=== PATIENT | female | born 1980 | race Hispanic/Latino ===

== ENCOUNTER 2019-05-19 07:24 | Outpatient (CLI) | payer OTHER, SELFPAY ==
--- NOTE | ~2019-05-19 | MM_ITS ---
EXAMINATION: MM screening cornel BI w sabrina HISTORY: Screening mammogram TECHNIQUE: Craniocaudal and mediolateral oblique 3-D tomosynthesis images were obtained and synthetic 2-D images were generated. CAD analysis was submitted and interpreted. COMPARISON: 12/30/2010 BREAST PARENCHYMAL COMPOSITION: There are scattered areas of fibroglandular density. FINDINGS: RIGHT BREAST: An asymmetry is present in the subareolar aspect of the breast which is best appreciate d on the craniocaudal view.. LEFT BREAST: There is no evidence of suspicious mass, calcification, or architectural distortion to s uggest malignancy. IMPRESSION: 1. Right breast asymmetry on the craniocaudal view. 2. Additional mammographic views and possible breast ultrasound are recommended to evaluate for malig barrera and establish a baseline given that this is the first mammographic examination. BI-RADS Category 0: Incomplete: Needs additional imaging evaluation. Reviewed, dictated and finalized at location A. COMMODORE IMPRESSION: 1. Right breast asymmetry on the craniocaudal view. 2. Additional mammographic views and possible breast ultrasound are recommended to evaluate for malignancy and establish a baseline given that this is the fir st mammographic examination. BI-RADS Category 0: Incomplete: Needs additional imaging evaluation.
== END 2019-05-19 07:25 | disposition home or self-care (01) ==
PROVIDERS: PCP Family Medicine; Visit Provider Obstetrics & Gynecology
DX: Z12.31 Encounter for screening mammogram for malignant neoplasm of breast (principal)
CPT/HCPCS: 77063; 77067

== ENCOUNTER 2019-06-16 11:40 | Outpatient (CLI) | payer OTHER, SELFPAY ==
--- NOTE | ~2019-06-16 | MMUS_ITS ---
EXAMINATION: MM diagnostic mammo unilat RT, US breast RT limited HISTORY: Follow-up right breast asymmetry TECHNIQUE: Additional 3-D tomosynthesis images of the right breast were performed and synthetic 2-D i mages were generated. CAD analysis was submitted and interpreted. High resolution right breast ultras ound was performed. COMPARISON: 05/19/2019 FINDINGS: MAMMOGRAPHIC FINDINGS: Breast composed of scattered areas of fibroglandular density. There is a focal 8mm mass in the latera l aspect of the right breast on CC view with central lucency, likely benign. No suspicious calcificat ions or architectural distortion. ULTRASOUND: Right breast ultrasound: At 10:00, 2 cm from the nipple there is a 7 mm intramammary lymph node corresponding to the mass seen on mammogram. At 10:00 near the nipple is a complicated cyst measuring 4 mm. There is an adjacent 2 mm cyst. There is a small 3 mm intramammary lymph node at 9:00. There is a cyst measuring 4 mm at 6:0 0 near the nipple. There are mildly prominent ducts at 3 and 11:00. IMPRESSION: 1. No evidence for malignancy in the right breast. Benign findings. 2. Routine yearly screening mammogram and regular clinical breast examination are recommended. BI-RADS Category 2: Benign finding(s). Reviewed, dictated and finalized at location A. IMPRESSION: 1. No evidence for malignancy in the right breast. Benign findings. 2. Routine yearly screening mammogram and regular clinical breast examination a re recommended. BI-RADS Category 2: Benign finding(s).
== END 2019-06-16 11:41 | disposition home or self-care (01) ==
LOC: ANHIMG 11:42
PROVIDERS: PCP Family Medicine; Visit Provider Obstetrics & Gynecology
DX: R92.8 Other abnormal and inconclusive findings on diagnostic imaging of breast (principal)
CPT/HCPCS: 76642; 77065

== ENCOUNTER 2020-05-04 08:33 | Emergency (ER) | payer OTHER, SELFPAY ==
[2020-05-04] VITALS (7 sets, daily range): BP systolic 137–166; BP diastolic 73–101; PULSE 74–101; RESP 18; TEMP 36.2; O2SAT 99–100
--- NOTE | ~2020-05-04 | US_ITS ---
EXAMINATION: US OB <=14 wk fetus w TV DATE: 05/04/2020 11:50 INDICATION: Spotting. First trimester. TECHNIQUE: Real-time transabdominal and transvaginal pelvic ultrasound was performed. COMPARISON: None. FINDINGS: TRANSABDOMINAL ULTRASOUND: The uterus measures 9.4 x 5.0 x 4.6 cm. TRANSVAGINAL ULTRASOUND: There is an intrauterine gestational sac. A yolk sac is identified. The fet al crown rump length measures 5 mm, which correlates with an estimated gestational age of 6 weeks and 2 day(s) (+/-) 4 day(s). heart motion is identified measuring 106 beats per minute (bpm) by M- mode Doppler. The right ovary measures 2.5 x 2.3 x 1.8 cm. The left ovary measures 2.1 x 2.4 x 1.8 cm . There is no free fluid in the pelvis. IMPRESSION: 1. Single living intrauterine gestation with estimated date of delivery of 12/26/2020. Reviewed, dictated and finalized at location A. CLE PAINTER IMPRESSION: 1. Single living intrauterine gestation with estimated date of delivery of 11/29.
--- NOTE | 2020-05-04 08:51 | ED.FEMALEGU ---
HPI - Female Genitourinary General Chief complaint: Vaginal Bleeding Stated complaint: , bleeding Time Seen by Provider: 05/04/20 08:34 History of Present Illness HPI Narrative: 39 yo female at approximately 8 weeks presents to the ED for vaginal bleeding. She has noted blood on the tissue when she wipes since yesterday. No heavy bleeding and no clots. No dysuria, frequency, abdominal pain. She has not seen her OB or had an ultrasound this . Related Data Home Medications Medication Instructions Recorded Confirmed No Home Medications 05/04/20 05/04/20 Allergies Allergy/AdvReac Type Severity Reaction Status Date / Time No Known Allergies Allergy Verified 05/04/20 09:13 Review of Systems Review of Systems: All systems reviewed & are unremarkable except as noted in HPI and below Constitutional: Constitutional: Denies chills Eyes: Eyes: Reports no additional eye complaints ENT: Reports system reviewed and no additional complaints, except as documented Cardiovascular: Cardiovascular: Denies chest pain Respiratory: Respiratory: Denies dyspnea Gastrointestinal: Gastrointestinal: Denies abdominal pain, Denies nausea and Denies vomiting Genitourinary: Genitourinary: Denies nocturia and Denies dysuria Musculoskeletal: Musculoskeletal: Reports back pain Neurologic: Denies dizziness and Denies weakness [facility] Past Medical History Medical History FH: colon cancer FH: ovarian cancer Migraine Family History Family History Other Carcinoma of colon Diabetes mellitus Hypertension Social History Social History Smoking status: Never smoker Second hand tobacco smoke exposure: No Alcohol intake: never Substance use: never Exam Const: General: healthy appearing, no acute distress and alert Orientation/consciousness: patient oriented x3 HENMT: Head: normal to inspection Neck: Neck: normal visual inspection Chest: Chest palpation & inspection: no tenderness Resp: Effort & Inspection: normal respiratory effort Auscultation: clear to auscultation bilaterally, no rales, no rhonchi and no wheezes Cardio: Jugular venous distension: no JVD Rate: regular rate Rhythm: regular rhythm Heart sounds: no murmurs GI: Inspection: non-distended GI Palp: Yes Soft to palpation and No Tenderness to palpation present (GI) Skin: General skin exam: normal color Neuro: General: patient oriented x3 and moves all extremities Speech: normal speech Gait exam (Neuro): Normal gait present Extrem: General: normal to inspection and no edema Psych: Appearance: well kempt Affect: normal affect Course Vital Signs Vital signs: Vital Signs Temperature 36.2 C L 05/04/20 08:59 Pulse Rate 101 H 05/04/20 08:59 Respiratory Rate 18 05/04/20 08:59 Blood Pressure 166/101 H 05/04/20 08:59 Pulse Oximetry 100 05/04/20 08:59 Temperature 36.2 C L 05/04/20 08:59 Pulse Rate 76 05/04/20 12:01 Respiratory Rate 18 05/04/20 10:40 Blood Pressure 137/83 05/04/20 12:01 Pulse Oximetry 100 05/04/20 12:15 MDM - Female Genitourinary MDM Narrative Medical decision making narrative: No US. Her OB was contacted. They will see her in clinic within the week. Original UA was contaminated. Cathed UA reassuring Differential Diagnosis Differential diagnosis: Likely urinary tract infection and other (Subchorionic hemorrhage, miscarriage, ectopic ) Medical Records Attestation: I reviewed the patient's medical records. Lab Data Attestation: I reviewed the patient's lab results. Result diagrams: 05/04/20 09:25 Labs: Lab Results 05/04/20 05/04/20 05/04/20 Range/Units 09:25 09:25 09:25 WBC 7.1 (4.5-10.0) K/mm3 RBC 4.26 (4.2-5.4) M/mm3 Hgb 12.5 (12.0-15.0) g/dL Hct
[2020-05-04 09:38] LABS: Basophils Percent Auto 0.6 % (0.2-1.2); Eosinophils Absolute Auto 0.2 K/mm3 (0-0.3); Eosinophils Percent Auto 3.4 % (0-4.4); Hemoglobin 12.5 g/dL (12.0-15.0); Immature Granulocyte Absolute 0.03 K/mm3 (0.00-0.031); Immature Granulocyte Percent A 0.4 % (0-0.5); Lymphocytes Absolute Auto 2.19 K/mm3 (0.9-3.2); Lymphocytes Percent Auto 30.9 % (18.3-44.2); Mean Corpuscular HGB Conc 32.9 g/dl (32-36); Mean Corpuscular Hemoglobin 29.3 pg (26-34); Mean Corpuscular Volume 89.2 fl (80-100); Mean Platelet Volume 10.1 fl (7.4-10.4); Monocytes Absolute Auto 0.6 K/mm3 (0.1-0.6); Neutrophils Absolute Auto 3.9 K/mm3 (1.3-6.7); Neutrophils Percent Auto 55.7 % (45.5-73.1); Platelet Count Result 241 k/mm3 (150-375); Red Blood Count 4.26 M/mm3 (4.2-5.4); Red Cell Distribution Width 12.8 % (11.5-14.5); White Blood Count 7.1 K/mm3 (4.5-10.0)
[2020-05-04 09:46] LABS: Add Urine Microscopic? YES; Appearance Urine Cloudy (Clear); Bacteria Urine Trace /hpf; Bilirubin Urine Negative (Negative); Blood Urine 3+ (Negative); Glucose Urine UA Negative (Negative); Ketones Urine Trace mg/dL (Negative); Leukocyte Esterase Ur 1+ LEU/UL (Negative); Mucus Urine Rare /lpf; Nitrate Urine Negative (Negative); Protein Urine 1+ mg/dL (Negative); RBC Urine >75 /hpf (0-2); Specific Grav Ur 1.012 (1.001-1.035); Squamous Epithelial Cell Urine Many /hpf (Few); Urobilinogen Urine Negative mg/dL (<2.0); WBC Urine 31-50 /hpf
[2020-05-04 09:55] LABS: Color Urine Light Red (Yellow)
[2020-05-04 11:05] LABS: Add Urine Microscopic? YES; Appearance Urine Clear (Clear); Bilirubin Urine Negative (Negative); Blood Urine 2+ (Negative); Color Urine Straw (Yellow); Glucose Urine UA Negative (Negative); Ketones Urine Trace mg/dL (Negative); Leukocyte Esterase Ur Negative LEU/UL (Negative); Mucus Urine Rare /lpf; Nitrate Urine Negative (Negative); Protein Urine Negative (Negative); Specific Grav Ur 1.005 (1.001-1.035); Squamous Epithelial Cell Urine Rare /hpf (Few); Urobilinogen Urine Negative mg/dL (<2.0); WBC Urine 0-3 /hpf
--- NOTE | 2020-05-04 12:01 | PC.NURSE ---
Pt returns from ultrasound. Denies needs at present. Pt updated on awaiting results.
--- NOTE | 2020-05-04 12:31 | PC.NURSE ---
Pelvic exam per Dr. Cerda with this RN in attendance. Pt tolerated procedure well.
== END 2020-05-04 13:03 | disposition home or self-care (01) ==
PROVIDERS: Emergency Provider Emergency Medicine; PCP Family Medicine
DX: O20.9 Hemorrhage in early pregnancy, unspecified (principal); Z3A.01 Less than 8 weeks gestation of pregnancy
CPT/HCPCS: 36415; 51701; 76801; 76817; 81001; 81025; 84702; 85025; 85461; 87086; 87088; 99284

== ENCOUNTER 2023-06-01 07:52 | Outpatient (CLI) | payer OTHER, SELFPAY ==
--- NOTE | ~2023-06-01 | US_ITS ---
EXAMINATION: US abdomen complete DATE: 06/01/2023 08:24 INDICATION: Liver disease, unspecified TECHNIQUE: Multiple grayscale and Doppler ultrasound images of the abdomen were obtained. COMPARISON: None available FINDINGS: The head and body of the pancreas are normal. The pancreatic tail is obscured by bowel gas. The liver demonstrates increased echogenicity, heterogenous echotexture, and decreased through trans mission. No surface nodularity. Normal hepatopetal flow in the main portal vein. The gallbladder is n ormal with no abnormal wall thickening, pericholecystic fluid or stones. The normal common bile duct measures 3 mm. There was no sonographic Penaloza sign. The visualized portions of the aorta and inferio r vena cava are normal. The spleen is normal in appearance and measures 7.2 cm. The right kidney measures 11.5 x 4.1 x 5.8 cm . The left kidney measures 10.9 x 5.6 x 5.7 cm. The kidneys demonstrate normal parenchymal echogenici ty. There is no hydronephrosis. IMPRESSION: 1. Diffuse hepatic steatosis. Reviewed, dictated and finalized at location L. 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
== END 2023-06-01 07:53 ==
LOC: MICIMG 07:53
PROVIDERS: PCP Emergency Medicine; Visit Provider Emergency Medicine
DX: K76.0 Fatty (change of) liver, not elsewhere classified (principal); K76.9 Liver disease, unspecified
CPT/HCPCS: 76700

== ENCOUNTER 2023-07-26 14:31 | Outpatient (CLI) | payer OTHER, SELFPAY ==
--- NOTE | ~2023-07-26 | CT_ITS ---
EXAMINATION: CT sinus wo con DATE: 07/26/2023 14:51 INDICATION: Acute recurrent pansinusitis TECHNIQUE: Computed tomography (CT) of the paranasal sinuses was performed without intravenous contra st. The dose-length product was 269.39 mGy-cm. Automated exposure control and iterative reconstructio n technique were employed. COMPARISON: None FINDINGS: Leftward nasal septal deviation. There is mild mucosal thickening of the maxillary sinuses. No mucoperiosteal reaction. No air-fluid levels. Mastoids are pneumatized. No depressed skull fractu res. IMPRESSION: 1. Mild maxillary sinus disease. Reviewed, dictated and finalized at location B.
== END 2023-07-26 14:32 ==
PROVIDERS: PCP Otolaryngology; Visit Provider Otolaryngology
DX: J01.41 Acute recurrent pansinusitis (principal); J01.00 Acute maxillary sinusitis, unspecified
CPT/HCPCS: 70486

== ENCOUNTER 2025-03-14 14:42 | Outpatient (CLI) | payer OTHER, SELFPAY ==
--- NOTE | ~2025-03-14 | MM_ITS ---
EXAMINATION: MM screening cornel BI w sabrina HISTORY: Screening TECHNIQUE: Craniocaudal and mediolateral oblique 3-D tomosynthesis images were obtained and synthetic 2-D images were generated. CAD analysis was submitted and interpreted. COMPARISON: 05/19/2019 BREAST PARENCHYMAL COMPOSITION: Not Dense: There are scattered areas of fibroglandular density. FINDINGS: There is no evidence of suspicious mass, calcification, or architectural distortion to suggest malignancy in either breast. IMPRESSION: 1. No mammographic evidence of malignancy. 2. Recommend routine screening mammography in one year. BI-RADS Category 1: Negative Reviewed, dictated and finalized at location A. 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
--- OUTSIDE RECORDS SUMMARY | 2025-03-14 17:33 | XMS_ITS | Clinical Summary ---
Author Organization [facility] Address [address] [place] [address] Care Team Providers Care Director Quality Systems Name Role Phone Unavailable Primary Care Provider Unavailabl e Source Comments [facility],non-owned Affiliates and Associated Physician Practices is amultiple site organization consisting of ambulatory clinics and hospital sitesin [place], [place], [place] and [place]. This disclosure is being madepursuant to the Care Everywhere program and may not contain all information available regarding this patient. Last updated 17.[facility] [employer] Allergies No known active allergies Medications * Be aware that medications may not be up to date on this document. Alwaysverify current medications with the patient. 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 Gender Identity Not on file Sexual Orientation Not on file Last Filed Vital Signs Vital Sign Reading Time Taken Comments Blood Pressure 110/70 08/04/2018 10:23 AM CDT Pulse 92 08/04/2018 10:23 AM CDT Temperature 36.6 C (97.8 F) 08/04/2018 10:23 AM CDT Respiratory Rate 16 08/04/2018 10:23 AM CDT Oxygen Saturation - - Inhaled Oxygen Concentration - - Weight 90.7 kg (200 lb) 08/04/2018 10:23 AM CDT Height 167.6 cm (5' 6) 08/04/2018 10:23 AM CDT Body Mass Index 32.28 08/04/2018 10:23 AM CDT Plan of Treatment Health Maintenance Due Date Last Done Comments COLOGUARD (AGES 45-75) - COL ON CA SCREENING 1978 COLON MONITORING 1978 COLONOSCOPY - COLON CA SCREENING 1978 CT COLONOGRAPHY - COLON CA SCREENING 1978 Colorectal Cancer Screening 1978 FIT - COLON CA SCREENING 1978 FLEX SIG - COLON CA SCREENING 1978 LIPID TESTING 1978 MAMMOGRAM 1978 HIV SCREENING 1993 HEPATITIS C SCREENING 10/05/1996 DTAP/TDAP/TD VACCINES (1 - Tdap) 1997 HEPATITIS B VACCINE (1 of 3 - 19+ 3-dose series) 1997 DEPRESSION SCREENING 03/29/2024 COVID-19 VACCINE (1 - 2024-2 6 season) 2024 INFLUENZA VACCINE (#1) 2024 ZOSTER VACCINE (1 of 2) 2028 HIB VACCINE Aged Out No longer eligi ble based on patient's age to complete this topic HPV VACCINE Aged Out No longer eligi ble based on patient's age to complete this topic MENINGOCOCCAL (Group B) VACC INE SHARED DECISION-MAKING Aged Out No longer eligibl e based on patient's age to complete this topic MENINGOCOCCAL GROUPS A/C/Y/W VACCINE Aged Out No longer eligible b ased on patient's age to complete this topic PNEUMOCOCCAL VACCINE Aged Out No long er eligible based on patient's age to complete this topic Insurance [facility]
== END 2025-03-14 14:43 | disposition home or self-care (01) ==
LOC: ANHFOHIMG 14:44
PROVIDERS: PCP Emergency Medicine; Visit Provider Obstetrics & Gynecology
DX: Z12.31 Encounter for screening mammogram for malignant neoplasm of breast (principal)
CPT/HCPCS: 77063; 77067